=== PATIENT | female | born 2000 | race Caucasian/White ===

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

== ENCOUNTER → 2022-06-16 | Day surgery (SDC) | payer OTHER ==
[~2022-06-16] MED LIST changes: +HYDROCODON-ACE1 EAC4 PO; +METRONIDAZOLE500 MG PO; +PROBIOTIC
== END | disposition home or self-care (01) ==
LOC: OR 07:28
DX: K80.10 Calculus of gallbladder with chronic cholecystitis without obstruction (principal)
CPT/HCPCS: 84703; C1729; J0690; J1100; J1170; J2001; J2250; J2405; J2704; J3010